=== PATIENT | female | born 1965 | race Caucasian/White ===

== ENCOUNTER → 2017-07-01 | Outpatient (CLI) | payer BC | END | disposition home or self-care (01) | LOC: KCIC 14:39 | DX: R06.02 Shortness of breath (principal) | CPT/HCPCS: 71046 ==

== ENCOUNTER → 2017-07-16 | Outpatient (CLI) | payer BC ==
[~2017-07-16] MED LIST: CONTRAST GIVEN MC
[2017-07-16] MEDS: IOHEXOL 300 MG/ML 100ML VIAL. IV (15:48)
== END | disposition home or self-care (01) ==
LOC: KCIC CT 14:33
DX: R59.1 Generalized enlarged lymph nodes (principal)
CPT/HCPCS: 70491; Q9967